=== PATIENT | male | born 1985 | race African-American/Black ===

== ENCOUNTER 2021-10-26 19:52 | Emergency (ER) | payer OTHER ==
[~2021-10-26] VITALS: Ht 180.3 cm; Wt 84.1 kg
[2021-10-26] MEDS ORDERED: MORPHINE 4 MG/ML 1ML VIAL/SYRINGE IV ONE (20:05)
[2021-10-26] MEDS ORDERED: NS 1,000 ML IV SCH (20:20)
[2021-10-26] MEDS ORDERED: fentaNYL 100 MCG/2 ML INJECTION IV ONE (20:30)
[2021-10-26] MEDS: propofoL 200 MG/20 ML VIAL IV.PROC PRN ×2 (20:48→20:50)
[2021-10-26] MEDS ORDERED: IBUP-1022 PO (22:24)
[2021-10-26 22:30] VITALS: BP 139/87
[2021-10-26] MEDS ORDERED: PERC5TAB12 PO (22:33)
[2021-10-26] MEDS ORDERED: OXYCODONE/APAP 5MG/325MG(BULK FOR ED) 1 TABLET PO ONE (22:35)
== END 2021-10-26 22:50 | disposition home or self-care (01) ==
LOC: M ED 19:52
DX: S93.04XA Dislocation of right ankle joint, initial encounter (principal); X50.1XXA Overexertion from prolonged static or awkward postures, initial encounter; Y92.099 Unspecified place in other non-institutional residence as the place of occurrence of the external cause; Y93.89 Activity, other specified; Y99.9 Unspecified external cause status; Z88.5 Allergy status to narcotic agent
CPT/HCPCS: 27840; 73590; 73610; 73700; 93041; 94760; 99156; 99291; J3010

== ENCOUNTER 2024-05-19 10:17 | Emergency (ER) | payer OTHER ==
[~2024-05-19] VITALS: Ht 180.3 cm; Wt 92.3 kg
[~2024-05-19 10:17] MED LIST: IBUP-1022 PO; PERC5TAB12 PO
[2024-05-19] MEDS ORDERED: KETOROLAC 60MG 2ML VIAL IM ONE (16:55)
[2024-05-19] MEDS ORDERED: methylPREDNISolone 125MG 2ML VIAL IM ONE (16:55)
[2024-05-19] MEDS: KETOROLAC 30 MG/ML 1ML VIAL IV ONE (17:53)
[2024-05-19] MEDS: methylPREDNISolone 125MG 2ML VIAL IV ONE (17:54)
[2024-05-19] MEDS: methocarbamoL 500 MG TAB PO ONE (17:54)
[2024-05-19] MEDS ORDERED: METH-1164 PO (18:58)
[2024-05-19] MEDS ORDERED: IBUP-1022 PO (18:58)
[2024-05-19] MEDS ORDERED: PRED20TA PO (18:58)
[2024-05-19 19:34] VITALS: BP 120/80; TEMP 96.9; O2SAT 100
== END 2024-05-19 19:43 | disposition home or self-care (01) ==
LOC: MERGE 10:17 → M ED 10:17
DX: M51.26 Other intervertebral disc displacement, lumbar region (principal); Z88.5 Allergy status to narcotic agent
CPT/HCPCS: 70450; 72146; 72148; 80047; 96374; 96375; 99284; J1885; J2919